=== PATIENT | male | born 1970 | race Two or more races ===

== ENCOUNTER 2018-01-03 08:43 | Day surgery (SDC) | payer MEDICAID ==
[2018-01-03 09:07] VITALS: BMI 25.0
[2018-01-03] MEDS ORDERED: Simethicone 40 mg/0.6 ml Liquid (30 ml) ONE (10:46)
[2018-01-03] MEDS ORDERED: Propofol 10 mg/ml Inj (20 ML) ONE ×2 (10:48→11:06)
[2018-01-03] MEDS ORDERED: Lactated Ringer's 1,000 ML IV ONE (10:50)
[2018-01-03] MEDS ORDERED: Midazolam 2 MG/2 ML VIAL ONE (10:52)
[2018-01-03 11:31] VITALS: TEMP 99.3
[2018-01-03 12:01] VITALS: PULSE 95
[2018-01-03 12:35] VITALS: BP 109/74; RESP 16; O2SAT 100
== END 2018-01-03 15:18 | disposition home or self-care (01) ==
LOC: C.ENDO 08:43
PROVIDERS: ATTEND Internal Medicine Gastroenterology
DX: Z12.11 Encounter for screening for malignant neoplasm of colon (principal); D12.5 Benign neoplasm of sigmoid colon; K57.30 Diverticulosis of large intestine without perforation or abscess without bleeding; K64.8 Other hemorrhoids
CPT/HCPCS: 45380; 88305; J2250; J2704; J7120